=== PATIENT | female | born 1945 | race Caucasian/White ===

== ENCOUNTER → 2020-03-27 | Outpatient (CLI) | payer MEDICARE, OTHER ==
--- NOTE | 2020-03-27 14:53 | RADIOLOGY REPORT (SQ) ---
EXAM DESCRIPTION: MRI THORACIC SPINE WITHOUT IMAGES COMPLETED DATE/TIME: 03/27/2020 11:03 am REASON FOR STUDY: LOWER BACK PAIN M54.5 LOW BACK PAIN COMPARISON: None. TECHNIQUE: Sagittal and Axial imaging includes T1, T2, STIR and gradient echo sequences. LIMITATIONS: None. FINDINGS: LOCALIZER: No worrisome findings. ALIGNMENT: Normal. VERTEBRAE: There is a T10 compression fracture with approximately 10 to 20% loss of height. No retro pulsion. BONE MARROW: Marrow edema throughout the T10 vertebral body. Multiple areas of fatty infiltration. HARDWARE: None in the spine. CORD: Normal in size and signal intensity. SOFT TISSUES: No soft tissue masses. THORACIC DISCS T1-T12: Disc space narrowing throughout the dorsal spine. No focal disc herniations. LOWER CERVICAL: Incompletely imaged. No significant spinal stenosis or exit foraminal stenosis. UPPER LUMBAR: Incompletely imaged. No significant spinal stenosis or exit foraminal stenosis. OTHER: No other significant finding. IMPRESSION: Acute T10 compression fracture. No retropulsion. Based on imaging the patient would be a good prospect for kyphoplasty. TECHNICAL DOCUMENTATION: JOB ID: [id number] [employer]- All Rights Reserved Reading location - IP/workstation name: [email or web address]
--- NOTE | 2020-03-27 15:00 | RADIOLOGY REPORT (SQ) ---
EXAM DESCRIPTION: MRI LUMBAR SPINE WITHOUT IMAGES COMPLETED DATE/TIME: 03/27/2020 11:03 am REASON FOR STUDY: LOWER BACK PAIN M54.5 LOW BACK PAIN COMPARISON: CT abdomen pelvis dated 03/14/2011 TECHNIQUE: Sagittal and Axial imaging includes T1, T2, STIR and gradient echo sequences. Coronal T2/ HASTE imaging. LIMITATIONS: None. FINDINGS: VISUALIZED UPPER ABDOMEN: Limited evaluation. No acute or suspicious findings suggested. SEGMENTATION: No transitional anatomy. The lowest well-developed disc space is labeled L5-S1. ALIGNMENT: Anatomic. VERTEBRAE: Chronic L4 compression deformity with 10 to 20% loss of height. BONE MARROW: Fatty endplate changes at L4. Small Schmorl's node at the same level. DISC SIGNAL: Loss of normal water signal throughout the lumbar spine consistent with desiccation. POSTERIOR ELEMENTS: Generally intact. No pars defect evident. HARDWARE: None in the spine. CORD AND CONUS: Normal in size and signal intensity. Conus at the appropriate level. SOFT TISSUES: No aortic aneurysm seen. No bulky retroperitoneal adenopathy or mass. No paraspinal mas s or fluid. L1-L2: No significant spinal stenosis or exit foraminal stenosis. L2-L3: No significant spinal stenosis or exit foraminal stenosis. L3-L4: Annular disc bulging. Bilateral facet arthropathy. This results in mild central stenosis. N o significant foraminal narrowing. L4-L5: Mild annular bulging. No central stenosis. No significant foraminal narrowing. L5-S1: No significant spinal stenosis or exit foraminal stenosis. LOWER THORACIC: Incompletely imaged. No stenosis seen. SACRUM: Visualized upper sacrum intact. OTHER: No other significant findings. IMPRESSION: Mild multilevel desiccation. Mild central stenosis at L3-L4. Chronic L4 compression de formity at L4 with 10 to 20% loss of height. TECHNICAL DOCUMENTATION: JOB ID: [id number] 2010 [employer]- All Rights Reserved Reading location - IP/workstation name: [email or web address]
== END ==
LOC: RAD 09:34
PROVIDERS: ATTEND Physician Assistant
DX: M48.061 Spinal stenosis, lumbar region without neurogenic claudication (principal); M51.86 Other intervertebral disc disorders, lumbar region; M54.5 Low back pain
CPT/HCPCS: 72146; 72148